=== PATIENT | female | born 1945 | race African-American/Black ===

== ENCOUNTER 2018-12-18 06:53 | Inpatient (IN) ==
[2018-12-17 13:22] LABS: Basophils % 0.8 % (0.0-0.8); Eosinophils % 0.6 % (0.00-10.9); Hemoglobin 13.2 GM/DL (12.0-16.0); Immature Granulocytes % 0.4 %; Immature Granulocytes Absolute 0.02 #; Lymphocytes # 1.6 10*3/uL (1.4-4.0); Lymphocytes % 32.2 % (21.3-54.2); Mean Corpuscular HGB Conc 33.8 GM/DL (32-36); Mean Corpuscular Hemoglobin 33 PG (27-34); Mean Corpuscular Volume 96.5 FL (87-102); Mean Platelet Volume 9.5 FL (9.6-12.0); Monocytes # 0.5 10*3/uL (0.11-0.8); Monocytes % 10.9 % (1.7-12.7); Neutrophils # 2.7 10*3/uL (1.4-7.4); Neutrophils % 55.1 % (38.7-73.9); Platelet Count 258 T/CUMM (130-400); Red Blood Count 4.04 MC/CUMM (3.8-5.5)
[2018-12-17 13:43] LABS: Alanine Aminotransferase 19 U/L (13-56); Alkaline Phosphatase 68 U/L (45-117); Aspartate Amino Transferase 15 U/L (0-37); Bilirubin,Total < 0.39 MG/DL (0.2-1.0); Blood Urea Nitrogen 14 MG/DL (7-18); Calcium 9.4 MG/DL (8.5-10.1); Glucose 91 MG/DL (74-106); Osmolality,Calculated 262.7 MOS/KG (273-304); Potassium 4.4 MMOL/L (3.5-5.1); Sodium 131 MMOL/L (136-145); Total Protein 8.9 G/DL (6.4-8.3)
[~2018-12-18 06:53] MED LIST: VANCOMYCIN INJ 500 MG in SODIUM CHLORIDE 0.9% 100 ML IV ONE
[2018-12-18] MEDS ORDERED: LIDOCAINE 1%/EPI INJ 20 ML VIAL ONE (07:52)
[2018-12-18] MEDS ORDERED: HEPARIN 5,000 UNIT/1 ML VIAL ONE (07:52)
[2018-12-18] MEDS ORDERED: VANCOMYCIN 500 MG VIAL ONE (08:03)
[2018-12-18] MEDS: LACTATED RINGERS 1,000 ML IV SCH ×3 (08:13→23:42)
[2018-12-18] MEDS ORDERED: LIDOCAINE 1% 20 ML VIAL ONE (08:39)
[2018-12-18] MEDS ORDERED: NALOXONE 0.4 MG/ML VIAL IV PRN (10:35)
[2018-12-18] MEDS ORDERED: DEXTROSE 50% 25 GM/50 ML VIAL IV PRN (10:35)
[2018-12-18] MEDS ORDERED: GLUCAGON 1 MG VIAL IM PRN (10:35)
[2018-12-18] MEDS ORDERED: PROMETHAZINE 25 MG/1 ML VIAL IM PRN (10:35)
[2018-12-18] MEDS ORDERED: ONDANSETRON 4 MG/2 ML VIAL IV PRN ×2 (10:35→10:56)
[2018-12-18] MEDS ORDERED: oxyCODONE/ACETAMINOPHEN 5-325 MG TABLET PO PRN (10:35)
[2018-12-18] MEDS ORDERED: HYDROmorphone 2 MG/1 ML VIAL IV PRN ×2 (10:35)
[2018-12-18] MEDS ORDERED: HYDROmorphone 2 MG/1 ML VIAL ONE (10:53)
[2018-12-18] MEDS ORDERED: ONDANSETRON 4 MG/2 ML VIAL ONE ×2 (10:53→11:07)
[2018-12-18] MEDS: HYDROmorphone 2 MG/1 ML VIAL IV PRN ×4 (10:55→12:25)
[2018-12-18] MEDS ORDERED: fentaNYL 100 MCG/2 ML VIAL ONE (11:07)
[2018-12-18] MEDS ORDERED: GLYCOPYRROLATE 0.4 MG/2 ML VIAL ONE (11:07)
[2018-12-18] MEDS ORDERED: HEPARIN/NACL 0.9% 2 UNITS/ML 500 ML IV ONE (11:07)
[2018-12-18] MEDS ORDERED: HEPARIN 10,000 UNIT/10 ML VIAL ONE (11:07)
[2018-12-18] MEDS ORDERED: PROPOFOL 200 MG/20 ML VIAL IV ONE (11:07)
[2018-12-18] MEDS ORDERED: PHENYLEPHRINE DRIP 20 MG/250 ML PREMIX IV ONE (11:07)
[2018-12-18] MEDS ORDERED: SEVOFLURANE 1 UNIT/15 MINUTE INH ONE (11:07)
[2018-12-18] MEDS ORDERED: SODIUM CHLORIDE 0.9% 250 ML IV ONE (11:08)
[2018-12-18] MEDS ORDERED: ROCURONIUM 100 MG/10 ML VIAL IV ONE (11:08)
[2018-12-18] MEDS ORDERED: LACTATED RINGERS 1,000 ML IV ONE (11:08)
[2018-12-18] MEDS ORDERED: NEOSTIGMINE 10 MG/10 ML VIAL ONE (11:08)
[2018-12-18] MEDS ORDERED: NITROGLYCERIN DRIP 50 MG/250 ML BOTTLE IV ONE (11:08)
[2018-12-18] MEDS ORDERED: PROTAMINE SULFATE 50 MG/5 ML VIAL IV ONE (11:15)
[2018-12-18] MEDS: PHENYLEPHRINE DRIP 40 MG/250 ML PREMIX IV SCH (13:14)
[2018-12-18] MEDS: NITROPRUSSIDE 100 MG in DEXTROSE 5% 250 ML IV SCH (14:21)
[2018-12-19] MEDS: LEVOTHYROXINE 50 MCG TABLET PO SCH (07:23)
[2018-12-19] MEDS: hydroCHLOROthiazide 25 MG TABLET PO SCH (09:28)
[2018-12-19] MEDS: VALSARTAN 160 MG TABLET PO SCH (09:28)
[2018-12-19] MEDS: METOPROLOL SUCCINATE XL 25 MG TABLET PO SCH (09:28)
[2018-12-19] MEDS: amLODIPine 5 MG TABLET PO SCH (09:29)
[2018-12-19] MEDS: CLOPIDOGREL 75 MG TABLET PO SCH (09:29)
[2018-12-19] MEDS: ROSUVASTATIN 10 MG TABLET PO SCH (09:29)
[2018-12-19] MEDS: FERROUS SULFATE 325 MG TABLET PO SCH (09:29)
[2018-12-19] MEDS: LACTATED RINGERS 1,000 ML IV SCH (11:40)
[2018-12-19] MEDS: PHENYLEPHRINE DRIP 40 MG/250 ML PREMIX IV SCH (11:56)
[2018-12-19] MEDS: NITROPRUSSIDE 100 MG in DEXTROSE 5% 250 ML IV SCH (12:08)
[2018-12-19] MEDS: oxyCODONE/ACETAMINOPHEN 5-325 MG TABLET PO PRN (19:58)
[2018-12-20] MEDS: LEVOTHYROXINE 50 MCG TABLET PO SCH (06:15)
[2018-12-20 07:37] VITALS: BP 127/58
[2018-12-20] MEDS: ROSUVASTATIN 10 MG TABLET PO SCH (09:07)
[2018-12-20] MEDS: hydroCHLOROthiazide 25 MG TABLET PO SCH (09:07)
[2018-12-20] MEDS: FERROUS SULFATE 325 MG TABLET PO SCH (09:08)
[2018-12-20] MEDS: METOPROLOL SUCCINATE XL 25 MG TABLET PO SCH (09:08)
[2018-12-20] MEDS: VALSARTAN 160 MG TABLET PO SCH (09:08)
[2018-12-20] MEDS: amLODIPine 5 MG TABLET PO SCH (09:08)
[2018-12-20] MEDS: CLOPIDOGREL 75 MG TABLET PO SCH (09:08)
[2018-12-20] MEDS: oxyCODONE/ACETAMINOPHEN 5-325 MG TABLET PO PRN (09:47)
== END 2018-12-20 11:38 | disposition home or self-care (01) | DRG 39 ==
LOC: N.SDSINP 06:53 → N.CVR 12:44 → N.ICU 23:27 → N.3E 12-19 17:28
PROVIDERS: ADMIT Surgery; ATTEND Surgery

== ENCOUNTER 2019-03-01 18:36 | Inpatient (IN) ==
[2019-03-01] MEDS ORDERED: SODIUM CHLORIDE 0.9% 1,000 ML IV PRN (21:33)
[2019-03-01] MEDS ORDERED: NICOTINE 21 MG/24 HR PATCH TRANSDERM PRN (21:39)
[2019-03-01] MEDS ORDERED: MORPHINE 4 MG/1 ML VIAL IV PRN (21:39)
[2019-03-01] MEDS ORDERED: diphenhydrAMINE CAP 25 MG CAPSULE PO PRN (21:39)
[2019-03-01] MEDS ORDERED: ACETAMINOPHEN 325 MG TABLET PO PRN (21:39)
[2019-03-01] MEDS ORDERED: BISACODYL 5 MG TABLET PO PRN (21:39)
[2019-03-01] MEDS ORDERED: POTASSIUM CHLORIDE 20 MEQ/15 ML UDCUP PER TUBE PRN (21:51)
[2019-03-01 22:08] LABS: Basophils % 0.3 % (0.0-0.8); Eosinophils # 0.1 10*3/uL (0.0-0.87); Eosinophils % 0.6 % (0.00-10.9); Immature Granulocytes % 0.5 %; Immature Granulocytes Absolute 0.05 #; Lymphocytes # 1.9 10*3/uL (1.4-4.0); Lymphocytes % 19.7 % (21.3-54.2); Mean Corpuscular HGB Conc 31.2 GM/DL (32-36); Mean Corpuscular Volume 105.5 FL (87-102); Mean Platelet Volume 9.3 FL (9.6-12.0); Monocytes % 7.7 % (1.7-12.7); Neutrophils % 71.2 % (38.7-73.9); Platelet Count 259 T/CUMM (130-400); Red Blood Count 1.64 MC/CUMM (3.8-5.5); Red Cell Distribution Width 12.8 % (9.3-17.3); White Blood Count 9.6 T/CUMM (4-12)
[2019-03-01 22:16] LABS: Hemoglobin 5.4 GM/DL (12.0-16.0)
[2019-03-01 22:17] LABS: Hematocrit 17.3 VOL% (35.7-47.0)
[2019-03-01 22:39] LABS: Alanine Aminotransferase 13 U/L (13-56); Albumin 3.3 G/DL (3.4-5.0); Alkaline Phosphatase 50 U/L (45-117); Aspartate Amino Transferase 13 U/L (0-37); Bilirubin,Total < 0.39 MG/DL (0.2-1.0); Blood Urea Nitrogen 42 MG/DL (7-18); Calcium 8.8 MG/DL (8.5-10.1); Glucose 105 MG/DL (74-106); HDL Cholesterol 49 MG/DL (40-60); Osmolality,Calculated 280.1 MOS/KG (273-304); Risk Ratio 2.88; Total Protein 6.8 G/DL (6.4-8.3); Triglycerides 106 MG/DL (2-150); VLDL CHOLESTEROL 21.2 MG/DL
[2019-03-01] MEDS: SODIUM CHLORIDE 0.9% 1,000 ML IV SCH (22:39)
[2019-03-01] MEDS: PANTOPRAZOLE 40 MG VIAL IV SCH (22:58)
[2019-03-02] MEDS: PANTOPRAZOLE 40 MG VIAL IV SCH ×2 (08:04→21:16)
[2019-03-02] MEDS: ONDANSETRON 4 MG/2 ML VIAL IV PRN (10:00)
[2019-03-02 14:48] LABS: Hematocrit 28.9 VOL% (35.7-47.0)
[2019-03-02 14:52] LABS: Hemoglobin 9.3 GM/DL (12.0-16.0)
[2019-03-02] MEDS: SODIUM CHLORIDE 0.9% 1,000 ML IV SCH (16:27)
[2019-03-02 18:00] LABS: Apearance,Urine CLEAR (Clear); Bilirubin,Urine Negative (Negative); Blood, Urine Negative (Negative); Glucose,Urine (UA) Negative (Negative); Ketones,Urine Negative (Negative); Nitrite,Urine Negative (Negative); Protein,Urine Negative; RBC,Urine 1 /HPF (0-4); Squamous Epithelial Cell,Urine Occasional /HPF (0-10); Urine Color Colorless (Yellow); Urine Specific Gravity 1.003 (1.001-1.035); Urine Urobilinogen < 2.0 EU/DL (0.2-1.0); WBC,Urine 1 /HPF (0-6)
[2019-03-03 06:37] LABS: Basophils % 0.4 % (0.0-0.8); Eosinophils # 0.3 10*3/uL (0.0-0.87); Eosinophils % 4.3 % (0.00-10.9); Immature Granulocytes % 0.4 %; Immature Granulocytes Absolute 0.03 #; Lymphocytes # 1.3 10*3/uL (1.4-4.0); Lymphocytes % 19.1 % (21.3-54.2); Mean Corpuscular HGB Conc 32.1 GM/DL (32-36); Mean Corpuscular Volume 95.2 FL (87-102); Mean Platelet Volume 9.6 FL (9.6-12.0); Monocytes % 10.5 % (1.7-12.7); Neutrophils % 65.3 % (38.7-73.9); Platelet Count 212 T/CUMM (130-400); Red Blood Count 2.94 MC/CUMM (3.8-5.5); Red Cell Distribution Width 17.4 % (9.3-17.3)
[2019-03-03 06:52] LABS: Calcium 8.4 MG/DL (8.5-10.1); Osmolality,Calculated 278.5 MOS/KG (273-304)
[2019-03-03] MEDS: PANTOPRAZOLE 40 MG VIAL IV SCH ×2 (08:05→20:42)
[2019-03-03] MEDS: SODIUM CHLORIDE 0.9% 1,000 ML IV SCH (08:07)
[2019-03-03 17:14] LABS: Hematocrit 30.6 VOL% (35.7-47.0); Hemoglobin 9.6 GM/DL (12.0-16.0)
[2019-03-04 05:20] LABS: Basophils % 0.4 % (0.0-0.8); Eosinophils # 0.3 10*3/uL (0.0-0.87); Eosinophils % 4.4 % (0.00-10.9); Hematocrit 28.5 VOL% (35.7-47.0); Hemoglobin 8.9 GM/DL (12.0-16.0); Immature Granulocytes % 0.4 %; Immature Granulocytes Absolute 0.03 #; Lymphocytes # 1.6 10*3/uL (1.4-4.0); Lymphocytes % 22.9 % (21.3-54.2); Mean Corpuscular HGB Conc 31.2 GM/DL (32-36); Mean Corpuscular Volume 97.3 FL (87-102); Mean Platelet Volume 9.4 FL (9.6-12.0); Monocytes % 10.9 % (1.7-12.7); Platelet Count 219 T/CUMM (130-400); Red Blood Count 2.93 MC/CUMM (3.8-5.5); Red Cell Distribution Width 17.2 % (9.3-17.3); White Blood Count 7.1 T/CUMM (4-12)
[2019-03-04 05:36] LABS: Calcium 8.4 MG/DL (8.5-10.1); Osmolality,Calculated 276.4 MOS/KG (273-304)
[2019-03-04] MEDS: SODIUM CHLORIDE 0.9% 1,000 ML IV SCH ×3 (08:00→21:47)
[2019-03-04] MEDS ORDERED: PROPOFOL 200 MG/20 ML VIAL IV ONE (09:00)
[2019-03-04] MEDS ORDERED: AMLODIPINE VALSARTAN PO SCH (09:00)
[2019-03-04] MEDS ORDERED: LIDOCAINE 2% 5 ML VIAL ONE (09:00)
[2019-03-04] MEDS: PANTOPRAZOLE 40 MG VIAL IV SCH (10:41)
[2019-03-04] MEDS: ONDANSETRON 4 MG/2 ML VIAL IV PRN (10:43)
[2019-03-04] MEDS: MULTIVITAMIN (CENTRUM) TABLET PO SCH (11:00)
[2019-03-04] MEDS: hydroCHLOROthiazide 25 MG TABLET PO SCH (11:00)
[2019-03-04] MEDS: amLODIPine 5 MG TABLET PO SCH (11:00)
[2019-03-04] MEDS: VALSARTAN 160 MG TABLET PO SCH (11:00)
[2019-03-04] MEDS: METOPROLOL SUCCINATE XL 25 MG TABLET PO SCH (11:00)
[2019-03-04] MEDS: LACTATED RINGERS 1,000 ML IV SCH ×2 (12:00→13:55)
[2019-03-04] MEDS ORDERED: BISACODYL 5 MG TABLET PO ONE (16:00)
[2019-03-04] MEDS ORDERED: POLYETHYLENE GLYCOL POWDER 255 GM BOTTLE PO ONE (18:00)
[2019-03-04] MEDS: PANTOPRAZOLE 40 MG TABLET PO SCH (21:43)
[2019-03-05] MEDS ORDERED: MAGNESIUM CITRATE 300 ML BOTTLE PO ONE (06:00)
[2019-03-05] MEDS ORDERED: LEVOTHYROXINE 50 MCG TABLET PO SCH (06:30)
[2019-03-05 08:31] LABS: Basophils % 0.4 % (0.0-0.8); Eosinophils # 0.4 10*3/uL (0.0-0.87); Eosinophils % 4.9 % (0.00-10.9); Hematocrit 31.9 VOL% (35.7-47.0); Hemoglobin 10.2 GM/DL (12.0-16.0); Immature Granulocytes % 0.4 %; Immature Granulocytes Absolute 0.03 #; Lymphocytes # 1.7 10*3/uL (1.4-4.0); Lymphocytes % 21.7 % (21.3-54.2); Mean Corpuscular Volume 96.7 FL (87-102); Mean Platelet Volume 9.4 FL (9.6-12.0); Monocytes % 9.2 % (1.7-12.7); Neutrophils % 63.4 % (38.7-73.9); Platelet Count 257 T/CUMM (130-400); Red Cell Distribution Width 16.9 % (9.3-17.3)
[2019-03-05 08:46] LABS: Calcium 8.7 MG/DL (8.5-10.1); Osmolality,Calculated 270.7 MOS/KG (273-304)
[2019-03-05] MEDS ORDERED: PROPOFOL 200 MG/20 ML VIAL IV ONE (09:00)
[2019-03-05] MEDS ORDERED: LEVOFLOXACIN 500 MG TABLET PO SCH (09:00)
[2019-03-05] MEDS ORDERED: LIDOCAINE 2% 5 ML VIAL ONE (09:00)
[2019-03-05] MEDS: SODIUM CHLORIDE 0.9% 1,000 ML IV SCH ×2 (11:15→14:47)
[2019-03-05] MEDS: amLODIPine 5 MG TABLET PO SCH (12:00)
[2019-03-05] MEDS: VALSARTAN 160 MG TABLET PO SCH (12:00)
[2019-03-05] MEDS: PANTOPRAZOLE 40 MG TABLET PO SCH (12:00)
[2019-03-05] MEDS: METOPROLOL SUCCINATE XL 25 MG TABLET PO SCH (12:00)
[2019-03-05] MEDS: hydroCHLOROthiazide 25 MG TABLET PO SCH (12:00)
[2019-03-05] MEDS: LACTATED RINGERS 1,000 ML IV SCH (12:00)
[2019-03-05] MEDS: MULTIVITAMIN (CENTRUM) TABLET PO SCH (12:00)
[2019-03-05 14:25] VITALS: BP 168/67
== END 2019-03-05 17:38 | disposition home or self-care (01) | DRG 813 ==
LOC: N.5E 20:39
PROVIDERS: ADMIT Internal Medicine; ATTEND Internal Medicine